=== PATIENT | male | born 1945 | race Two or more races ===

== ENCOUNTER 2021-10-17 19:08 | Inpatient (IN) | payer MEDICARE, OTHER ==
[~2021-10-17] VITALS: Ht 152.4 cm; Wt 67.1 kg
--- NOTE | 2021-10-17 19:15 | NUR ---
PATIENT WAS BIBRA 39 FROM HOME C/O WITNESSED SYNCOPAL EPISODE AT 1815. PT AAO X 4, YORUBA SPEAKING, BREATHING EVEN AND UNLABORED. SEEN AND EXAMINED BY DR BALDWIN. PT ATTACHED TO MONITOR AND PULSE OX. WILL CONTINUE MONITOR AND CARRY OUT MD ORDERS.
[2021-10-17] MEDS ORDERED: IV NS 0.9% 500 ML BAG IV ONE (19:30)
--- NOTE | 2021-10-17 19:37 | NUR ---
BLOOD DRAWN AND SENT TO LAB
[2021-10-17 20:25] LABS: BASOPHILS # (AUTO) 0.1 K/uL (0.0-0.2); BASOPHILS % (AUTO) 0.8 % (0.0-2.0); EOSINOPHILS % (AUTO) 0.3 % (0.0-6.0); HEMATOCRIT 41 % (39-51); HEMOGLOBIN 13.7 g/dL (13.5-17.5); LYMPHOCYTES # (AUTO) 0.4 K/uL (0.8-4.8); LYMPHOCYTES % (AUTO) 3.2 % (20.0-44.0); MEAN CORPUSCULAR HGB CONC 33 g/dl (31.0-36.0); MEAN CORPUSCULAR VOLUME 100 fL (80-96); MONOCYTES # (AUTO) 1.8 K/uL (0.1-1.30); MONOCYTES % (AUTO) 15.8 % (2.0-12.0); NEUTROPHILS % (AUTO) 79.9 % (43.0-81.0); PLATELET COUNT (AUTO) 155 K/uL (150-450); WHITE BLOOD COUNT (AUTO) 11.2 K/uL (4.3-11.0)
[2021-10-17 20:46] LABS: CALCIUM, SERUM 8.2 mg/dL (8.5-10.1); CARBON DIOXIDE 23 mmol/L (21-32); CHLORIDE 94 mmol/L (98-107); CREATININE 1.9 mg/dL (0.6-1.3); GLUCOSE 223 mg/dL (74-106); POTASSIUM 4.1 mmol/L (3.5-5.1); SODIUM SERUM 130 mmol/L (136-145); UREA NITROGEN, BLOOD 25 mg/dL (7-18)
[2021-10-17 20:51] LABS: ALANINE AMINOTRANSFERASE 72 U/L (12-78); ALBUMIN 2.3 g/dL (3.4-5.0); ALKALINE PHOSPHATASE 393 U/L (46-116); ASPARTATE AMINOTRANSFERASE 189 U/L (15-37); BILIRUBIN,DIRECT 2.5 mg/dL (0.0-0.2); BILIRUBIN,TOTAL 3.5 mg/dL (0.2-1.0); TOTAL PROTEIN, SERUM 6.2 g/dL (6.4-8.2)
--- NOTE | 2021-10-17 20:57 | NUR ---
MOVE SHEET SUBMITTED.
--- NOTE | 2021-10-17 21:02 | NUR ---
COVID SWAB COLLECTED AND SENT TO LAB
[2021-10-17 21:29] LABS: BAND % (MANUAL) 2 % (0.0-5.0); LYMPHOCYTES % (MANUAL) 8 % (16-48); MONOCYTES % (MANUAL) 13 % (0-11.0); NEUTROPHILS % (MANUAL) 77 (42-76)
[2021-10-18] MEDS ORDERED: ZOLPIDEM TARTRATE 5 MG TABLET PO PRN
[2021-10-18] MEDS ORDERED: MORPHINE SULFATE INJ 2 MG/ML DISP.SYRIN IV PRN
[2021-10-18] MEDS ORDERED: ACETAMINOPHEN 325 MG TABLET PO PRN
[2021-10-18] MEDS ORDERED: ONDANSETRON HCL/PF 4 MG/2 ML VIAL IVP PRN
[2021-10-18] MEDS ORDERED: Z GUARD REMEDY 4 OZ OINT TP PRN
[2021-10-18] MEDS ORDERED: MAG HYDROX/AL HYDROX/SIMETH 30 ML UDC PO PRN
[2021-10-18] MEDS ORDERED: HYDROCODONE/APAP 5/325MG TABLET PO PRN
[2021-10-18] MEDS ORDERED: MAGNESIUM HYDROXIDE 30 ML UDC PO PRN
[2021-10-18 05:27] LABS: BASOPHILS % (AUTO) 0.2 % (0.0-2.0); HEMATOCRIT 40 % (39-51); HEMOGLOBIN 13.3 g/dL (13.5-17.5); LYMPHOCYTES # (AUTO) 0.6 K/uL (0.8-4.8); LYMPHOCYTES % (AUTO) 4.8 % (20.0-44.0); MEAN CORPUSCULAR HGB CONC 34 g/dl (31.0-36.0); MEAN CORPUSCULAR VOLUME 100 fL (80-96); MONOCYTES # (AUTO) 1.8 K/uL (0.1-1.30); MONOCYTES % (AUTO) 14.7 % (2.0-12.0); NEUTROPHILS # (AUTO) 9.8 K/uL (1.8-8.9); NEUTROPHILS % (AUTO) 80.3 % (43.0-81.0); PLATELET COUNT (AUTO) 134 K/uL (150-450); RED BLOOD CELL COUNT(AUTO) 3.96 MIL/uL (4.5-6.0); WHITE BLOOD COUNT (AUTO) 12.2 K/uL (4.3-11.0)
[2021-10-18] MEDS ORDERED: MAGNESIUM HYDROXIDE 30 ML UDC ONE (05:41)
[2021-10-18 05:55] LABS: ALANINE AMINOTRANSFERASE 68 U/L (12-78); ALBUMIN 2.1 g/dL (3.4-5.0); ALKALINE PHOSPHATASE 340 U/L (46-116); ASPARTATE AMINOTRANSFERASE 185 U/L (15-37); BILIRUBIN,DIRECT 2.4 mg/dL (0.0-0.2); BILIRUBIN,TOTAL 3.4 mg/dL (0.2-1.0); CALCIUM, SERUM 8.1 mg/dL (8.5-10.1); CARBON DIOXIDE 27 mmol/L (21-32); CHLORIDE 98 mmol/L (98-107); GLUCOSE 127 mg/dL (74-106); MAGNESIUM 2.4 mg/dL (1.8-2.4); PHOSPHORUS 3.9 mg/dL (2.5-4.9); POTASSIUM 4.5 mmol/L (3.5-5.1); SODIUM SERUM 134 mmol/L (136-145); TOTAL PROTEIN, SERUM 5.9 g/dL (6.4-8.2); UREA NITROGEN, BLOOD 28 mg/dL (7-18)
[2021-10-18] MEDS ORDERED: PANTOPRAZOLE 40 MG TABLET.DR PO ONE (07:25)
[2021-10-18] MEDS: PANTOPRAZOLE 40 MG TABLET.DR PO SCH (07:30)
[2021-10-18 08:14] LABS: THYROID STIMULATING HORMONE 0.198 uIU/mL (0.358-3.74)
--- NOTE | 2021-10-18 08:35 | NUR ---
ULTRASOUND AT BEDSIDE
[2021-10-18] MEDS ORDERED: FOLI0.4T6 PO (08:38)
[2021-10-18] MEDS ORDERED: METO25TA4 PO (08:38)
[2021-10-18] MEDS ORDERED: LOSA25TA27 PO (08:38)
[2021-10-18] MEDS ORDERED: ATOR10TA PO (08:38)
[2021-10-18] MEDS ORDERED: CHOL200059 PO (08:38)
[2021-10-18] MEDS ORDERED: APIX5TAB PO (08:38)
[2021-10-18] MEDS ORDERED: AMIO400T5 PO (08:38)
[2021-10-18] MEDS ORDERED: NITR0.4T48 SL (08:38)
[2021-10-18] MEDS ORDERED: METF-440 PO (08:38)
[2021-10-18] MEDS ORDERED: METH2.5T14 PO (08:38)
[2021-10-18] MEDS ORDERED: FURO20TA4 PO ×2 (08:38→08:47)
[2021-10-18] MEDS ORDERED: CLOP75TA15 PO (08:38)
[2021-10-18] MEDS ORDERED: PRED2.5T PO (08:45)
--- NOTE | 2021-10-18 08:47 | NUR ---
SPOKE TO DAUGHTER JOELLEN AND SON AND STATED IF ANY MEDICAL RECORDS ARE NEEDED THAT HE FREQUENTLY GOES TO [facility].
--- NOTE | 2021-10-18 08:49 | NUR ---
PT'S PRIMARY PROVIDER IS DR VALENZUELA
[2021-10-18] MEDS ORDERED: ASPIRIN EC 81 MG TABLET.DR PO ONE (08:51)
[2021-10-18] MEDS ORDERED: HEPARIN SODIUM, PORCINE 5000 UNITS/1 ML VIAL ONE (08:51)
[2021-10-18] MEDS ORDERED: ONDANSETRON HCL/PF 4 MG/2 ML VIAL ONE ×2 (08:51→17:44)
[2021-10-18] MEDS ORDERED: Medication Not On Formulary EA (Prednisone 2.5 MG) PO SCH (09:00)
[2021-10-18] MEDS: METOPROLOL SUCCINATE 25 MG TAB.SR.24H PO SCH (09:00)
[2021-10-18] MEDS ORDERED: NITROGLYCERIN 0.4 MG/TAB BOTTLE SL PRN (09:00)
[2021-10-18] MEDS: ASPIRIN EC 81 MG TABLET.DR PO SCH (09:16)
[2021-10-18] MEDS: HEPARIN SODIUM, PORCINE 5000 UNITS/1 ML VIAL SQ SCH ×2 (09:17→21:25)
[2021-10-18] MEDS ORDERED: CHOLECALCIFEROL 1,000 UNIT TABLET (VIT D3) ONE (09:28)
[2021-10-18] MEDS ORDERED: FOLIC ACID 1 MG TABLET ONE (09:29)
[2021-10-18] MEDS ORDERED: CLOPIDOGREL BISULFATE 75 MG TABLET ONE (09:29)
[2021-10-18] MEDS ORDERED: METOPROLOL SUCCINATE 25 MG TAB.SR.24H ONE (09:29)
[2021-10-18] MEDS ORDERED: predniSONE 10 MG TABLET PO SCH (09:30)
[2021-10-18] MEDS ORDERED: predniSONE 1 MG TABLET PO SCH (09:30)
[2021-10-18] MEDS: FOLIC ACID 1 MG TABLET PO SCH (09:31)
[2021-10-18] MEDS: CHOLECALCIFEROL 1,000 UNIT TABLET (VIT D3) PO SCH (09:31)
[2021-10-18] MEDS: CLOPIDOGREL BISULFATE 75 MG TABLET PO SCH (09:31)
--- NOTE | 2021-10-18 09:47 | NUR ---
FOOD TRAY PROVIDED
[2021-10-18] MEDS ORDERED: METHOTREXATE SODIUM (2.5MG) 2.5 MG TABLET PO SCH (09:50)
[2021-10-18] MEDS: METHOTREXATE SODIUM (2.5MG) 2.5 MG TABLET PO SCH (10:14)
--- NOTE | 2021-10-18 11:02 | NUR ---
PT RESTING COMFORTABLY, VITALS ARE WITHIN PT'S BASELINE, WILL CONTINUE TO MONITOR.
[2021-10-18] MEDS: CEFTRIAXONE 1 G in IV D5W 50 ML IV SCH (13:41)
--- NOTE | 2021-10-18 15:20 | NUR ---
COLTON SCHRADER AT BEDSIDE
[2021-10-18 17:28] LABS: BILIRUBIN,URINE SMALL (NEGATIVE); COLOR,URINE YELLOW (YELLOW); LEUKOCYTE ESTERASE ,URINE NEGATIVE (NEGATIVE); NITRITE, URINE NEGATIVE (NEGATIVE); PROTEIN,URINE TRACE mg/dl (NEGATIVE); UGLUCOSE NEGATIVE (NEGATIVE)
[2021-10-18 18:09] LABS: BACTERIA,URINE None seen /HPF (None Seen); COARSE GRANULAR CASTS,URINE Many /LPF (None Seen); MUCUS,URINE Many /LPF (None Seen); RBC,URINE 0-2 /HPF (0-2); SQUAMOUS EPITHELIAL CELL,UR 0-2 /HPF (None Seen); URINE AMORPHOUS URATE Few /HPF (None Seen); WBC,URINE 0-2 /HPF (0-3)
[2021-10-18 18:10] LABS: HYALINE CASTS, URINE Many /LPF (None Seen)
--- NOTE | 2021-10-18 18:35 | NUR ---
FOOD TRAY PROVIDED
--- NOTE | 2021-10-18 18:49 | NUR ---
PT ATE 1/2 OF HIS DINNER
--- NOTE | 2021-10-18 19:01 | NUR ---
PT RESTING COMFORTABLY, EASY TO AROUSE.
--- NOTE | 2021-10-18 19:15 | NUR ---
GOT BED 323-1 AFTER CHANGE OF SHIFT.
--- NOTE | 2021-10-18 20:09 | NUR ---
REPORT GIVEN TO MARVEL JARA
[2021-10-18 20:45] VITALS: BP 114/60
--- NOTE | 2021-10-18 20:53 | NUR ---
TRANSFERRED TO 323 UNDER ACLS
[2021-10-18 21:45] VITALS: BP 114/60
--- NOTE | 2021-10-18 22:00 | NUR ---
GLOBAL CLIMATE CHANGE ANALYSTMOLDING LINE ASSISTANT NOTES RECEIVED NEW ADMIT FROM ER,THIS 76Y.O. MALE,SPEAK BHUTANESE WITH LITTLE CAYMAN ISLANDER,ALERT,ORIENTED X4,WITH CHIEF COMPLAINTS OF CP AND SYNCOPAL EPISODE AT HOME.DENIES CHEST PAIN UPON ARRIVAL ON THE UNIT,WITH KNOWN WEAKNESS ON LOWER EXTREMITIES,CLAIMED HE AMBULATE WITH WALKER AT HOME,ABLE TO VERBALIZED NEEDS,SPEECH CLEAR,,O2 SAT 99% ON ROOM AIR,NO SKIN ISSUES.VACCINATED TWICE WITH MODERNA COVID VACCINE AND UPDATED WITH FLU SHOT WELL.VITALS SIGNS WITH IN NORMAL LIMITS.NO SKIN ISSUES.CALL ANGELA PELAYO,NEEDS ANTICIPATED.
--- NOTE | 2021-10-18 22:30 | NUR ---
MEDICAL RECORD CODER NOTES AV PACING 70 ON TELE MONITOR,WITH PACEMAKER LEFT UPPER CHEST WALL.
[2021-10-19] VITALS: BP 100/52
[2021-10-19 04:00] VITALS: BP_SYST 103; BP_SYST 106; BP_SYST 97; BP_DIAS 56; BP_DIAS 64; BP_DIAS 66
--- NOTE | 2021-10-19 06:52 | NUR ---
TRESTLEMAN NOTES ORTHOSTATIC VITAL SIGNS DONE AND RECORDED.NO CHEST PAIN,ASLEEP SINCE MIDNIGHT,AV PACING ON TELE MONITOR.IN NO ACUTE DISTRESS.CALL LIGHT IN REACH,NEEDS ATTENDED.
[2021-10-19 07:07] LABS: BASOPHILS % (AUTO) 0.3 % (0.0-2.0); EOSINOPHILS % (AUTO) 0.2 % (0.0-6.0); HEMATOCRIT 39 % (39-51); HEMOGLOBIN 13.2 g/dL (13.5-17.5); LYMPHOCYTES # (AUTO) 0.8 K/uL (0.8-4.8); LYMPHOCYTES % (AUTO) 6.9 % (20.0-44.0); MEAN CORPUSCULAR HGB CONC 34 g/dl (31.0-36.0); MEAN CORPUSCULAR VOLUME 99 fL (80-96); MONOCYTES # (AUTO) 1.1 K/uL (0.1-1.30); MONOCYTES % (AUTO) 9.1 % (2.0-12.0); NEUTROPHILS # (AUTO) 9.8 K/uL (1.8-8.9); NEUTROPHILS % (AUTO) 83.5 % (43.0-81.0); PLATELET COUNT (AUTO) 140 K/uL (150-450); RED BLOOD CELL COUNT(AUTO) 3.91 MIL/uL (4.5-6.0); WHITE BLOOD COUNT (AUTO) 11.7 K/uL (4.3-11.0)
--- NOTE | 2021-10-19 07:20 | NUR ---
AUTOMOBILE SALESMAN OPENING NOTES RECEIVED PATIENT ON BED, AWAKE, A/O X3, VERBALLY RESPONSIVE. NO SIGNS OF ACUTE DISTRESS NOTED. ON ROOM AIR, TOLERATING WELL, NO SOB NOTED. NO C/O PAIN OR DISCOMFORT AT THIS TIME. IV ACCESS ON LAC #20G INTACT AND PATENT, SL. ON TELE MONITOR PACING @70'S. SAFETY MEASURES MAINTAINED, BED LOCKED AND IN LOWEST POSITION, BED ALARM ON, SR UP X2, CALL LIGHT PLACED WITHIN EASY REACH. WILL CONTINUE TO MONITOR.
[2021-10-19 07:29] LABS: CALCIUM, SERUM 7.6 mg/dL (8.5-10.1); CARBON DIOXIDE 25 mmol/L (21-32); CHLORIDE 97 mmol/L (98-107); CREATININE 1.8 mg/dL (0.6-1.3); GLUCOSE 86 mg/dL (74-106); MAGNESIUM 2.4 mg/dL (1.8-2.4); PHOSPHORUS 5.3 mg/dL (2.5-4.9); POTASSIUM 4.8 mmol/L (3.5-5.1); SODIUM SERUM 131 mmol/L (136-145); UREA NITROGEN, BLOOD 34 mg/dL (7-18)
[2021-10-19] MEDS: CLOPIDOGREL BISULFATE 75 MG TABLET PO SCH (08:06)
[2021-10-19] MEDS: CHOLECALCIFEROL 1,000 UNIT TABLET (VIT D3) PO SCH (08:06)
[2021-10-19] MEDS: PANTOPRAZOLE 40 MG TABLET.DR PO SCH (08:06)
[2021-10-19] MEDS: FOLIC ACID 1 MG TABLET PO SCH (08:07)
[2021-10-19] MEDS: ASPIRIN EC 81 MG TABLET.DR PO SCH (08:07)
[2021-10-19] MEDS: HEPARIN SODIUM, PORCINE 5000 UNITS/1 ML VIAL SQ SCH ×2 (08:13→21:13)
[2021-10-19] MEDS: METOPROLOL SUCCINATE 25 MG TAB.SR.24H PO SCH (08:15)
[2021-10-19 08:21] VITALS: BP 98/59
[2021-10-19] MEDS: predniSONE 5 MG TABLET PO SCH (08:28)
[2021-10-19 12:06] VITALS: BP 107/62
[2021-10-19] MEDS: CEFTRIAXONE 1 G in IV D5W 50 ML IV SCH (12:47)
[2021-10-19] MEDS: AMIODARONE HCL 200 MG TABLET PO SCH ×2 (15:00→17:00)
[2021-10-19] MEDS: SENNOSIDES 8.6 MG TABLET PO SCH (16:14)
[2021-10-19 16:36] VITALS: BP 90/55
--- NOTE | 2021-10-19 18:51 | NUR ---
HOSPITALITY ASSOCIATE CLOSING NOTES PATIENT ASLEEP IN BED,NO SIGNS OF ACUTE DISTRESS NOTED. REMAINS ON ROOM AIR, TOLERATING WELL, NO SOB NOTED. NO C/O PAIN OR DISCOMFORT AT THIS TIME. ALL DUE MEDS GIVEN. IV ACCESS ON LAC #20G INTACT AND PATENT, SL. ON TELE MONITOR AV PACING @70'S. SAFETY MEASURES MAINTAINED, BED LOCKED AND IN LOWEST POSITION, BED ALARM ON, SR UP X2, CALL LIGHT PLACED WITHIN EASY REACH. WILL ENDORSE TO NEXT SHIFT.
[2021-10-19 20:00] VITALS: BP 105/64
[2021-10-20] VITALS: BP 110/57
--- NOTE | 2021-10-20 06:28 | NUR ---
RN CLOSING NOTES Patient has been stable overnight. No complaints. Denies any Chest Pain. Has been AV pacing in 70s on monitor. Clear wesly urine -good output. No coughing or SOB. VS WNL.
[2021-10-20 06:47] VITALS: BP 104/61
[2021-10-20 07:05] LABS: BASOPHILS % (AUTO) 0.4 % (0.0-2.0); EOSINOPHILS % (AUTO) 0.5 % (0.0-6.0); HEMATOCRIT 36 % (39-51); HEMOGLOBIN 12.2 g/dL (13.5-17.5); LYMPHOCYTES # (AUTO) 0.9 K/uL (0.8-4.8); LYMPHOCYTES % (AUTO) 9.3 % (20.0-44.0); MEAN CORPUSCULAR HGB CONC 34 g/dl (31.0-36.0); MEAN CORPUSCULAR VOLUME 100 fL (80-96); MONOCYTES # (AUTO) 0.3 K/uL (0.1-1.30); MONOCYTES % (AUTO) 3.6 % (2.0-12.0); NEUTROPHILS # (AUTO) 8.2 K/uL (1.8-8.9); NEUTROPHILS % (AUTO) 86.2 % (43.0-81.0); PLATELET COUNT (AUTO) 122 K/uL (150-450); RED BLOOD CELL COUNT(AUTO) 3.61 MIL/uL (4.5-6.0); WHITE BLOOD COUNT (AUTO) 9.5 K/uL (4.3-11.0)
[2021-10-20 07:10] LABS: CALCIUM, SERUM 7.4 mg/dL (8.5-10.1); CARBON DIOXIDE 27 mmol/L (21-32); CHLORIDE 96 mmol/L (98-107); CREATININE 1.9 mg/dL (0.6-1.3); GLUCOSE 88 mg/dL (74-106); MAGNESIUM 2.3 mg/dL (1.8-2.4); PHOSPHORUS 4.5 mg/dL (2.5-4.9); POTASSIUM 4.1 mmol/L (3.5-5.1); SODIUM SERUM 131 mmol/L (136-145); UREA NITROGEN, BLOOD 40 mg/dL (7-18)
--- NOTE | 2021-10-20 07:14 | NUR ---
MANAGER SALES OPENING NOTES RECEIVED PATIENT IN BED, AWAKE, A/O X3, VERBALLY RESPONSIVE. NO SIGNS OF ACUTE DISTRESS NOTED. ON ROOM AIR, TOLERATING WELL, NO SOB NOTED. NO C/O PAIN OR DISCOMFORT AT THIS TIME. IV ACCESS ON LAC #20G INTACT AND PATENT, SL. ON TELE MONITOR PACING @70'S. THRILL AND BRUIT PRESENT ON R AC FISTULA. SAFETY MEASURES MAINTAINED, BED LOCKED AND IN LOWEST POSITION, BED ALARM ON, SR UP X2, CALL LIGHT PLACED WITHIN EASY REACH. WILL CONTINUE TO MONITOR. Addendum: 10/20/21 at 1500 by SELVIN HAIDER RN CORRECTION: PT HAS NO RAC FISTULA.
[2021-10-20 08:00] VITALS: BP 100/50
[2021-10-20 08:32] LABS: ALBUMIN 1.8 g/dL (3.4-5.0); BILIRUBIN,DIRECT 1.9 mg/dL (0.0-0.2); BILIRUBIN,TOTAL 2.5 mg/dL (0.2-1.0); TOTAL PROTEIN, SERUM 5.2 g/dL (6.4-8.2)
[2021-10-20] MEDS: SOTALOL HCL 80 MG TABLET PO SCH ×2 (09:00→21:16)
[2021-10-20] MEDS: FOLIC ACID 1 MG TABLET PO SCH (09:20)
[2021-10-20] MEDS: ASPIRIN EC 81 MG TABLET.DR PO SCH (09:20)
[2021-10-20] MEDS: predniSONE 5 MG TABLET PO SCH (09:20)
[2021-10-20] MEDS: CLOPIDOGREL BISULFATE 75 MG TABLET PO SCH (09:20)
[2021-10-20] MEDS: PANTOPRAZOLE 40 MG TABLET.DR PO SCH (09:20)
[2021-10-20] MEDS: CHOLECALCIFEROL 1,000 UNIT TABLET (VIT D3) PO SCH (09:21)
[2021-10-20] MEDS: HEPARIN SODIUM, PORCINE 5000 UNITS/1 ML VIAL SQ SCH ×2 (09:21→21:17)
[2021-10-20 12:00] VITALS: BP 105/54
[2021-10-20] MEDS: CEFTRIAXONE 1 G in IV D5W 50 ML IV SCH (14:11)
[2021-10-20 16:00] VITALS: BP 96/56
[2021-10-20] MEDS: SENNOSIDES 8.6 MG TABLET PO SCH (16:31)
--- NOTE | 2021-10-20 18:34 | NUR ---
EDUCATION SPECIALIST CLOSING NOTES PT IN BED AWAKE WATCHING TV AT THIS TIME. A/O X4, ABLE TO MAKE NEEDS KNOWN. ON ROOM AIR, TOLERATING WELL, NO SOB NOTED DURING SHIFT. IV ACCESS ON LAC #20G INTACT AND PATENT, SL. TELE-MONITOR SHOWS A-PACING TO AV-PACING DURING SHIFT, HR 70, NO C/O CARDIAC DISTRESS VOICED DURING THE DAY. ALL NEEDS AND CARE ATTENDED WELL. SAFETY MEASURES IN PLACED: BED IN LOWEST LOCKED POSITION WITH SIDE-RAILS UP X2. CALL LIGHT AND BEDSIDE TABLE W/IN EASY REACH OF PT. WILL ENDORSE JAQUELINE TO COMMERCIAL ESCROW OFFICER NURSE.
[2021-10-20 20:00] VITALS: BP 100/54
[2021-10-21] VITALS: BP_SYST 104; BP_SYST 84; BP_DIAS 57; BP_DIAS 63
[2021-10-21 04:00] VITALS: BP 85/56
--- NOTE | 2021-10-21 04:15 | NUR ---
Patient's SBP at baseline is 90s to low 100s, before bed was 100/64, after sotalol administration B/P went down to mid 80s. Patient showing no symptoms monitoring closely.
--- NOTE | 2021-10-21 06:42 | NUR ---
Patient sleeping intermittently throughout night A&Ox4, no signs of distress. Patient reports feeling "good." Still asymptomatic for low B/P. AV pacing AT 100% ON MONITOR 70bpm. hAD 1 BM soft brown and clear wesly urine.
[2021-10-21 07:27] LABS: BASOPHILS % (AUTO) 0.3 % (0.0-2.0); EOSINOPHILS % (AUTO) 0.8 % (0.0-6.0); HEMATOCRIT 38 % (39-51); HEMOGLOBIN 12.6 g/dL (13.5-17.5); LYMPHOCYTES # (AUTO) 0.8 K/uL (0.8-4.8); LYMPHOCYTES % (AUTO) 7.8 % (20.0-44.0); MEAN CORPUSCULAR HGB CONC 34 g/dl (31.0-36.0); MEAN CORPUSCULAR VOLUME 100 fL (80-96); MONOCYTES # (AUTO) 0.2 K/uL (0.1-1.30); MONOCYTES % (AUTO) 2.2 % (2.0-12.0); NEUTROPHILS # (AUTO) 9.3 K/uL (1.8-8.9); NEUTROPHILS % (AUTO) 88.9 % (43.0-81.0); PLATELET COUNT (AUTO) 117 K/uL (150-450); RED BLOOD CELL COUNT(AUTO) 3.76 MIL/uL (4.5-6.0); WHITE BLOOD COUNT (AUTO) 10.5 K/uL (4.3-11.0)
--- NOTE | 2021-10-21 07:33 | NUR ---
ZMT OPERATOR OPENING NOTES PT RECEIVED AWAKE IN BED IN NO ACUTE SIGNS OF DISTRESS. A/O X4, ABLE TO MAKE NEEDS KNOWN, DENIES PAIN OR ANY DISCOMFORTS AT THIS TIME. ON ROOM AIR, TOLERATING WELL, BREATHING EVEN AND UNLABORED. IV ACCESS ON LAC #20G INTACT AND PATENT, SL. TELE-MONITOR SHOWS A-PACING TO AV-PACING, HR 70, NO C/O CARDIAC DISTRESS VOICED. SAFETY MEASURES IN PLACED: BED IN LOWEST LOCKED POSITION WITH SIDE-RAILS UP X2. CALL LIGHT AND BEDSIDE TABLE W/IN EASY REACH OF PT. WILL CONTINUE TO MONITOR PT.
[2021-10-21 07:43] LABS: ALANINE AMINOTRANSFERASE 58 U/L (12-78); ALBUMIN 1.8 g/dL (3.4-5.0); ALKALINE PHOSPHATASE 294 U/L (46-116); ASPARTATE AMINOTRANSFERASE 175 U/L (15-37); BILIRUBIN,TOTAL 2.8 mg/dL (0.2-1.0); CALCIUM, SERUM 7.7 mg/dL (8.5-10.1); CARBON DIOXIDE 26 mmol/L (21-32); CHLORIDE 96 mmol/L (98-107); CREATININE 1.6 mg/dL (0.6-1.3); GLUCOSE 78 mg/dL (74-106); POTASSIUM 4.5 mmol/L (3.5-5.1); SODIUM SERUM 129 mmol/L (136-145); TOTAL PROTEIN, SERUM 5.1 g/dL (6.4-8.2); UREA NITROGEN, BLOOD 37 mg/dL (7-18)
[2021-10-21 08:00] VITALS: BP 81/48
[2021-10-21] MEDS: PANTOPRAZOLE 40 MG TABLET.DR PO SCH (08:11)
[2021-10-21] MEDS ORDERED: MIDODRINE HCL (5MG) 5 MG TABLET PO PRN (09:00)
[2021-10-21] MEDS: SOTALOL HCL 80 MG TABLET PO SCH ×2 (09:00→20:35)
[2021-10-21] MEDS: FOLIC ACID 1 MG TABLET PO SCH (09:06)
[2021-10-21] MEDS: CLOPIDOGREL BISULFATE 75 MG TABLET PO SCH (09:06)
[2021-10-21] MEDS: predniSONE 5 MG TABLET PO SCH (09:07)
[2021-10-21] MEDS: CHOLECALCIFEROL 1,000 UNIT TABLET (VIT D3) PO SCH (09:07)
[2021-10-21] MEDS: ASPIRIN EC 81 MG TABLET.DR PO SCH (09:07)
[2021-10-21] MEDS: HEPARIN SODIUM, PORCINE 5000 UNITS/1 ML VIAL SQ SCH ×2 (09:08→20:29)
[2021-10-21] MEDS: ALBUMIN 25% 25 GM in PREMIX 1 EA IV SCH ×2 (10:39→20:25)
[2021-10-21 12:00] VITALS: BP 84/55
[2021-10-21] MEDS: CEFTRIAXONE 1 G in IV D5W 50 ML IV SCH (13:36)
[2021-10-21 16:00] VITALS: BP 85/56
[2021-10-21] MEDS: SENNOSIDES 8.6 MG TABLET PO SCH (16:26)
--- NOTE | 2021-10-21 18:55 | NUR ---
AGILE COACH CLOSING NOTES PT IN BED WATCHING TV AT THIS TIME. A/O X4, THAI SPEAKING AND UNDERSTANDS BASIC UKRAINIAN. ON ROOM AIR, TOLERATING WELL, NO SOB NOTED DURING SHIFT. IV SL ON LAC #20G INTACT AND PATENT. TELE-MONITOR SHOWS AV-PACING AT THIS TIME, HR 70, NO C/O CARDIAC DISTRESS VOICED DURING THE DAY. ALL NEEDS AND CARE ATTENDED WELL. SAFETY MEASURES IN PLACED: BED IN LOWEST LOCKED POSITION WITH SIDE-RAILS UP X2. CALL LIGHT AND BEDSIDE TABLE W/IN EASY REACH OF PT. WILL ENDORSE JAQUELINE TO PEACE OFFICER NURSE.
--- NOTE | 2021-10-21 19:15 | NUR ---
HAMMERER TAB OPENING NOTES RECEIVED PATIENT LAYING AWAKE IN BED. A/O X 4. PATIENT WITH REGULAR AND UNLABORED BREATHING ON ROOM AIR TOLERATED WELL. NO SIGNS AND SYMPTOMS OF DISTRESS NOTED AT THIS TIME. NO COMPLAINS OF PAIN OR DISCOMFORT AT THIS TIME. PATIENT ON TELE MONITOR READING AV PACING @ 70 BPM. IV ACCESS LAC G #20 SL. IV ACCESS PATENT AND INTACT. SAFETY PRECAUTIONS ENFORCED WITH BED LOCKED AND AT LOWEST POSITION. SIDERAILS UP X2. CALL LIGHT WITHIN REACH AT ALL TIMES. WILL CONTINUE TO MONITOR PATIENT.
[2021-10-21 20:00] VITALS: BP 92/58
--- NOTE | 2021-10-21 21:00 | NUR ---
ASSIGNMENT DESK ASSISTANT NOTES DID NOT ADMINISTER SOTALOL DUE TO PATIENT BP 92/58. WILL CONTINUE TO MONITOR PATIENT.
[2021-10-22] VITALS: BP 93/52
[2021-10-22 04:00] VITALS: BP 94/62
--- NOTE | 2021-10-22 06:52 | NUR ---
FOOD SERVICE ORDER CLERK CLOSING NOTES PATIENT STILL LAYING AWAKE IN BED. A/O X 4. PATIENT WITH REGULAR AND UNLABORED BREATHING ON ROOM AIR TOLERATED WELL. NO SIGNS AND SYMPTOMS OF DISTRESS NOTED AT THIS TIME. NO COMPLAINS OF PAIN OR DISCOMFORT AT THIS TIME. PATIENT ON TELE MONITOR READING AV PACING @ 70 BPM. IV ACCESS LAC G #20 SL. IV ACCESS PATENT AND INTACT. SAFETY PRECAUTIONS ENFORCED WITH BED LOCKED AND AT LOWEST POSITION. SIDERAILS UP X2. CALL LIGHT WITHIN REACH AT ALL TIMES. WILL ENDORSE CONTINUITY OF CARE TO DAY SHIFT NURSE.
[2021-10-22 07:37] LABS: BASOPHILS % (AUTO) 0.2 % (0.0-2.0); EOSINOPHILS % (AUTO) 1.7 % (0.0-6.0); HEMATOCRIT 37 % (39-51); HEMOGLOBIN 12.4 g/dL (13.5-17.5); LYMPHOCYTES # (AUTO) 0.7 K/uL (0.8-4.8); LYMPHOCYTES % (AUTO) 8.4 % (20.0-44.0); MEAN CORPUSCULAR HGB CONC 34 g/dl (31.0-36.0); MEAN CORPUSCULAR VOLUME 100 fL (80-96); MONOCYTES # (AUTO) 0.4 K/uL (0.1-1.30); MONOCYTES % (AUTO) 4.8 % (2.0-12.0); NEUTROPHILS # (AUTO) 7.5 K/uL (1.8-8.9); NEUTROPHILS % (AUTO) 84.9 % (43.0-81.0); PLATELET COUNT (AUTO) 97 K/uL (150-450); RED BLOOD CELL COUNT(AUTO) 3.67 MIL/uL (4.5-6.0); WHITE BLOOD COUNT (AUTO) 8.8 K/uL (4.3-11.0)
--- NOTE | 2021-10-22 07:47 | NUR ---
GRAIN CLEANER AND TRANSFER OPERATOR OPENING NOTES RECEIVED PATIENT LAYING AWAKE IN BED. A/O X 4. PATIENT WITH REGULAR AND UNLABORED BREATHING ON ROOM AIR TOLERATING WELL. NO SIGNS AND SYMPTOMS OF DISTRESS NOTED AT THIS TIME. NO COMPLAINTS OF PAIN OR DISCOMFORT AT THIS TIME. IV ACCESS L AC #20g SL. IV ACCESS IS PATENT AND INTACT. SAFETY PRECAUTIONS IN PLACE: BED IS LOCKED AND IN LOWEST POSITION. SIDE RAILS UP X2. CALL LIGHT AND BEDSIDE TABLE ARE WITHIN REACH. WILL CONTINUE TO MONITOR THROUGHOUT THE SHIFT.
[2021-10-22 08:10] LABS: ALANINE AMINOTRANSFERASE 52 U/L (12-78); ALBUMIN 2.3 g/dL (3.4-5.0); ALKALINE PHOSPHATASE 288 U/L (46-116); ASPARTATE AMINOTRANSFERASE 157 U/L (15-37); BILIRUBIN,TOTAL 3.2 mg/dL (0.2-1.0); CALCIUM, SERUM 7.3 mg/dL (8.5-10.1); CARBON DIOXIDE 25 mmol/L (21-32); CHLORIDE 95 mmol/L (98-107); CREATININE 1.5 mg/dL (0.6-1.3); GLUCOSE 80 mg/dL (74-106); POTASSIUM 3.7 mmol/L (3.5-5.1); SODIUM SERUM 127 mmol/L (136-145); TOTAL PROTEIN, SERUM 5.1 g/dL (6.4-8.2); UREA NITROGEN, BLOOD 37 mg/dL (7-18)
[2021-10-22] MEDS: FOLIC ACID 1 MG TABLET PO SCH (08:14)
[2021-10-22] MEDS: PANTOPRAZOLE 40 MG TABLET.DR PO SCH (08:15)
[2021-10-22] MEDS: CHOLECALCIFEROL 1,000 UNIT TABLET (VIT D3) PO SCH (08:15)
[2021-10-22] MEDS: predniSONE 5 MG TABLET PO SCH (08:15)
[2021-10-22] MEDS: ASPIRIN EC 81 MG TABLET.DR PO SCH (08:15)
[2021-10-22] MEDS: HEPARIN SODIUM, PORCINE 5000 UNITS/1 ML VIAL SQ SCH ×2 (08:35→21:12)
[2021-10-22] MEDS: SOTALOL HCL 80 MG TABLET PO SCH ×2 (08:36→21:13)
--- NOTE | 2021-10-22 08:36 | NUR ---
RN NOTES: BP MEDS SOTALOL BEING HELP Pt BP IS 82/50 AND HR IS 70. WILL CONTINUE TO MONITOR.
[2021-10-22] MEDS: CLOPIDOGREL BISULFATE 75 MG TABLET PO SCH (08:40)
[2021-10-22] MEDS ORDERED: IV NS 0.9% 500 ML IV ONE (09:00)
[2021-10-22] MEDS: MIDODRINE HCL (5MG) 5 MG TABLET PO SCH ×3 (09:55→17:42)
[2021-10-22] MEDS: ALBUMIN 25% 25 GM in PREMIX 1 EA IV SCH ×2 (09:56→21:13)
[2021-10-22 10:00] VITALS: BP 82/50
[2021-10-22 13:06] VITALS: BP 102/63
[2021-10-22] MEDS: CEFTRIAXONE 1 G in IV D5W 50 ML IV SCH (13:42)
[2021-10-22] MEDS ORDERED: IV NS 0.9% 1,000 ML IV ONE (16:30)
[2021-10-22] MEDS: SENNOSIDES 8.6 MG TABLET PO SCH (17:41)
[2021-10-22 17:49] LABS: BAND % (MANUAL) 2 % (0.0-5.0); LYMPHOCYTES % (MANUAL) 4 % (16-48); MONOCYTES % (MANUAL) 8 % (0-11.0); NEUTROPHILS % (MANUAL) 86 (42-76)
[2021-10-22 17:50] VITALS: BP 102/60
--- NOTE | 2021-10-22 18:42 | NUR ---
ENGINEER STEAM CLOSING NOTES Pt STILL LAYING AWAKE IN BED. A/O X 4. Pt IS A PAKISTANI SPEAKER. Pt WITH REGULAR AND UNLABORED BREATHING ON ROOM AIR TOLERATING WELL. NO SIGNS AND SYMPTOMS OF DISTRESS NOTED AT THIS TIME. NO COMPLAINTS OF PAIN OR DISCOMFORT AT THIS TIME. IV ACCESS L AC #20g SL. IV ACCESS PATENT AND INTACT. SAFETY PRECAUTIONS ENFORCED WITH BED LOCKED AND IN LOWEST POSITION. CUT OFF OPERATOR SCORER AILS UP X2. CALL LIGHT AND BED SIDE TABLE ARE WITHIN REACH AT ALL TIMES. WILL ENDORSE TO ONCOMING SHIFT.
[2021-10-22 20:00] VITALS: BP 101/59
[2021-10-23] VITALS: BP 97/65
[2021-10-23 04:00] VITALS: BP 98/76
--- NOTE | 2021-10-23 06:40 | NUR ---
CNC TECHNICIAN NOTES AWAKE & RESPONSIVE. NOT IN ANY DISTRESS. NO SOB NOTED. DENIES ANY PAIN OR DISCOMFORT AT THIS TIME. ON TELE AV PACING @ 70 WITH IV-HL PATENT & INTACT. AM CARE DONE. MONITORED ACCORDINGLY. CALL LIGHT WITHIN REACH. BED IN LOWEST POSITION. SR UP X 2 FOR SAFETY. WILL ENDORSE TO NEXT SHIFT.
[2021-10-23 07:02] LABS: BASOPHILS % (AUTO) 0.3 % (0.0-2.0); EOSINOPHILS % (AUTO) 1.9 % (0.0-6.0); HEMATOCRIT 35 % (39-51); HEMOGLOBIN 11.8 g/dL (13.5-17.5); LYMPHOCYTES % (AUTO) 10.6 % (20.0-44.0); MEAN CORPUSCULAR HGB CONC 34 g/dl (31.0-36.0); MEAN CORPUSCULAR VOLUME 99 fL (80-96); MONOCYTES # (AUTO) 0.6 K/uL (0.1-1.30); MONOCYTES % (AUTO) 6.6 % (2.0-12.0); NEUTROPHILS # (AUTO) 7.9 K/uL (1.8-8.9); NEUTROPHILS % (AUTO) 80.6 % (43.0-81.0); PLATELET COUNT (AUTO) 85 K/uL (150-450); RED BLOOD CELL COUNT(AUTO) 3.48 MIL/uL (4.5-6.0); WHITE BLOOD COUNT (AUTO) 9.8 K/uL (4.3-11.0)
[2021-10-23 07:12] LABS: CHOLESTEROL 60 mg/dL (<200); LDL 39 mg/dL (0-99); TRIGLYCERIDES 54 mg/dL (30-150)
[2021-10-23 07:31] LABS: ALANINE AMINOTRANSFERASE 42 U/L (12-78); ALBUMIN 2.5 g/dL (3.4-5.0); ALKALINE PHOSPHATASE 252 U/L (46-116); ASPARTATE AMINOTRANSFERASE 113 U/L (15-37); BILIRUBIN,TOTAL 3.2 mg/dL (0.2-1.0); CALCIUM, SERUM 7.2 mg/dL (8.5-10.1); CARBON DIOXIDE 26 mmol/L (21-32); CHLORIDE 98 mmol/L (98-107); CREATININE 1.4 mg/dL (0.6-1.3); GLUCOSE 89 mg/dL (74-106); POTASSIUM 3.7 mmol/L (3.5-5.1); SODIUM SERUM 129 mmol/L (136-145); TOTAL PROTEIN, SERUM 4.9 g/dL (6.4-8.2); UREA NITROGEN, BLOOD 34 mg/dL (7-18)
--- NOTE | 2021-10-23 07:37 | NUR ---
COMMERCIAL FINANCE ANALYST OPENING NOTES RECEIVED PATIENT LAYING AWAKE IN BED. A/O X 4. PATIENT WITH REGULAR AND UNLABORED BREATHING ON ROOM AIR TOLERATING WELL. NO SIGNS AND SYMPTOMS OF DISTRESS NOTED AT THIS TIME. NO COMPLAINTS OF PAIN OR DISCOMFORT AT THIS TIME. IV ACCESS L AC #20g SL. IV ACCESS IS PATENT AND INTACT. SAFETY PRECAUTIONS IN PLACE: BED IS LOCKED AND IN LOWEST POSITION. SIDE RAILS UP X2. CALL LIGHT AND BEDSIDE TABLE ARE WITHIN REACH. WILL CONTINUE TO MONITOR THROUGHOUT THE SHIFT.
[2021-10-23 08:01] LABS: HDL CHOLESTEROL < 10 mg/dL (40-60)
[2021-10-23] MEDS: CHOLECALCIFEROL 1,000 UNIT TABLET (VIT D3) PO SCH (08:52)
[2021-10-23] MEDS: MIDODRINE HCL (5MG) 5 MG TABLET PO SCH ×3 (08:53→17:39)
[2021-10-23] MEDS: FOLIC ACID 1 MG TABLET PO SCH (08:53)
[2021-10-23] MEDS: predniSONE 5 MG TABLET PO SCH (08:54)
[2021-10-23] MEDS: CLOPIDOGREL BISULFATE 75 MG TABLET PO SCH (08:54)
[2021-10-23] MEDS: ASPIRIN EC 81 MG TABLET.DR PO SCH (08:54)
[2021-10-23] MEDS: PANTOPRAZOLE 40 MG TABLET.DR PO SCH (08:56)
[2021-10-23] MEDS: HEPARIN SODIUM, PORCINE 5000 UNITS/1 ML VIAL SQ SCH ×2 (09:00→21:22)
[2021-10-23] MEDS: SOTALOL HCL 80 MG TABLET PO SCH ×2 (09:00→21:21)
--- NOTE | 2021-10-23 09:00 | NUR ---
RN NOTES HEPARIN NOT ADMIN Pt'S PLATELETS ARE 85. BETAPACE WITHHELD A Pt's BP IS 93/57 AND HR IS 66. WILL CONTINUE TO MONITOR.
[2021-10-23] MEDS: CEFTRIAXONE 1 G in IV D5W 50 ML IV SCH (13:59)
[2021-10-23] MEDS: SENNOSIDES 8.6 MG TABLET PO SCH (17:39)
--- NOTE | 2021-10-23 19:19 | NUR ---
MS RN CLOSING NOTES Pt STILL LAYING AWAKE IN BED. A/O X 4. Pt IS A CHINESE SPEAKER. Pt WITH REGULAR AND UNLABORED BREATHING ON ROOM AIR TOLERATING WELL. NO SIGNS AND SYMPTOMS OF DISTRESS NOTED AT THIS TIME. NO COMPLAINTS OF PAIN OR DISCOMFORT AT THIS TIME. IV ACCESS L AC #20g SL. IV ACCESS PATENT AND INTACT. SAFETY PRECAUTIONS ENFORCED WITH BED LOCKED AND IN LOWEST POSITION. IMAGERY ANALYST AILS UP X2. CALL LIGHT AND BED SIDE TABLE ARE WITHIN REACH AT ALL TIMES. WILL ENDORSE TO ONCOMING SHIFT.
[2021-10-23 20:00] VITALS: BP 101/62
[2021-10-23] MEDS ORDERED: IV NS 0.9% 1,000 ML IV ONE (23:00)
[2021-10-24 07:13] LABS: BASOPHILS % (AUTO) 0.2 % (0.0-2.0); EOSINOPHILS % (AUTO) 0.6 % (0.0-6.0); HEMATOCRIT 39 % (39-51); LYMPHOCYTES # (AUTO) 1.2 K/uL (0.8-4.8); LYMPHOCYTES % (AUTO) 7.7 % (20.0-44.0); MEAN CORPUSCULAR HGB CONC 34 g/dl (31.0-36.0); MEAN CORPUSCULAR VOLUME 99 fL (80-96); MONOCYTES # (AUTO) 1.1 K/uL (0.1-1.30); MONOCYTES % (AUTO) 7.3 % (2.0-12.0); NEUTROPHILS # (AUTO) 13.2 K/uL (1.8-8.9); NEUTROPHILS % (AUTO) 84.2 % (43.0-81.0); PLATELET COUNT (AUTO) 78 K/uL (150-450); RED BLOOD CELL COUNT(AUTO) 3.89 MIL/uL (4.5-6.0); WHITE BLOOD COUNT (AUTO) 15.7 K/uL (4.3-11.0)
--- NOTE | 2021-10-24 07:36 | NUR ---
MANAGER COUNCIL OPENING NOTES RECEIVED PATIENT RESTING SEMI-FOWLERS IN BED. EYES CLOSED, EASILY AWAKENS. A/O X 4. PATIENT WITH REGULAR AND UNLABORED BREATHING ON ROOM AIR TOLERATING WELL. NO SIGNS AND SYMPTOMS OF DISTRESS NOTED AT THIS TIME. NO COMPLAINTS OF PAIN OR DISCOMFORT AT THIS TIME. IV ACCESS L AC #20g SL WITH IV ACCESS IS PATENT AND INTACT WITH NS @ 100 Ml/HR. SAFETY PRECAUTIONS IN PLACE: BED IS LOCKED AND IN LOWEST POSITION. SIDE RAILS UP X2. CALL LIGHT AND BEDSIDE TABLE ARE WITHIN REACH. WILL CONTINUE TO MONITOR THROUGHOUT THE SHIFT. Addendum: 10/24/21 at 1143 by SELVIN HAIDER RN CORRECTION: PT ON MED/SURG NOT ON TELE-MONITOR ANYMORE
[2021-10-24 07:53] LABS: ALANINE AMINOTRANSFERASE 46 U/L (12-78); ALBUMIN 2.3 g/dL (3.4-5.0); ALKALINE PHOSPHATASE 267 U/L (46-116); ASPARTATE AMINOTRANSFERASE 148 U/L (15-37); BILIRUBIN,TOTAL 4.1 mg/dL (0.2-1.0); CALCIUM, SERUM 7.2 mg/dL (8.5-10.1); CARBON DIOXIDE 23 mmol/L (21-32); CHLORIDE 98 mmol/L (98-107); CREATININE 1.4 mg/dL (0.6-1.3); GLUCOSE 87 mg/dL (74-106); POTASSIUM 4.2 mmol/L (3.5-5.1); SODIUM SERUM 127 mmol/L (136-145); TOTAL PROTEIN, SERUM 4.9 g/dL (6.4-8.2); UREA NITROGEN, BLOOD 36 mg/dL (7-18)
[2021-10-24] MEDS: FLUDROCORTISONE 0.1 MG TABLET PO SCH ×2 (08:27→08:57)
[2021-10-24] MEDS: PANTOPRAZOLE 40 MG TABLET.DR PO SCH (08:28)
[2021-10-24 08:35] VITALS: BP 96/61
[2021-10-24] MEDS: FOLIC ACID 1 MG TABLET PO SCH (08:57)
[2021-10-24] MEDS: ASPIRIN EC 81 MG TABLET.DR PO SCH (08:58)
[2021-10-24] MEDS: CHOLECALCIFEROL 1,000 UNIT TABLET (VIT D3) PO SCH (08:58)
[2021-10-24] MEDS: predniSONE 5 MG TABLET PO SCH (08:58)
[2021-10-24] MEDS: CLOPIDOGREL BISULFATE 75 MG TABLET PO SCH (08:59)
[2021-10-24] MEDS: SOTALOL HCL 80 MG TABLET PO SCH ×2 (09:00→21:00)
[2021-10-24] MEDS: MIDODRINE HCL (5MG) 5 MG TABLET PO SCH ×3 (09:00→16:16)
[2021-10-24] MEDS: HEPARIN SODIUM, PORCINE 5000 UNITS/1 ML VIAL SQ SCH ×2 (09:01→22:23)
[2021-10-24] MEDS ORDERED: VANCOMYCIN HCL 1.25 GM in IV D5W 260 ML IV SCH (09:30)
--- NOTE | 2021-10-24 11:26 | NUR ---
RN NOTES URINE SPECIMEN COLLECTED FOR URINALYSIS, CALLED LAB TO PICK-UP SPECIMEN.
[2021-10-24] MEDS: IV NS 0.9% 1,000 ML IV SCH ×2 (12:46→22:22)
[2021-10-24] MEDS: CEFEPIME 2 GM in IV D5W 100 ML IV SCH ×2 (13:15→22:19)
[2021-10-24 14:40] LABS: BILIRUBIN,URINE MODERATE (NEGATIVE); COLOR,URINE YELLOW (YELLOW); LEUKOCYTE ESTERASE ,URINE NEGATIVE (NEGATIVE); NITRITE, URINE NEGATIVE (NEGATIVE); PH,URINE 5.5 (5.0-8.0); PROTEIN,URINE TRACE mg/dl (NEGATIVE); UGLUCOSE NEGATIVE (NEGATIVE)
[2021-10-24 15:02] LABS: BACTERIA,URINE Few /HPF (None Seen); RBC,URINE 0-2 /HPF (0-2); WBC,URINE 0-2 /HPF (0-3)
[2021-10-24 15:03] LABS: HYALINE CASTS, URINE 0-2 /LPF (None Seen); SQUAMOUS EPITHELIAL CELL,UR Few /HPF (None Seen)
[2021-10-24 16:04] VITALS: BP 95/54
[2021-10-24] MEDS: SENNOSIDES 8.6 MG TABLET PO SCH (16:15)
--- NOTE | 2021-10-24 18:38 | NUR ---
MS RN CLOSING NOTES PT LAYING AWAKE IN BED. A/O X 4, FINNISH SPEAKER. PT WITH REGULAR AND UNLABORED BREATHING ON ROOM AIR TOLERATING WELL. NO SIGNS AND SYMPTOMS OF DISTRESS NOTED AT THIS TIME. NO COMPLAINTS OF PAIN OR DISCOMFORT AT THIS TIME. IV ACCESS L AC #20g SL. IV ACCESS PATENT AND INTACT. SAFETY PRECAUTIONS ENFORCED WITH BED LOCKED AND IN LOWEST POSITION. SIDE RAILS UP X2. CALL LIGHT AND BED SIDE TABLE ARE WITHIN REACH AT ALL TIMES. WILL ENDORSE TO ONCOMING SHIFT.
--- NOTE | 2021-10-24 19:40 | NUR ---
MS/RN OPENING NOTE RECEIVED PATIENT RESTING IN BED. AWAKE, ALERT AND ORIENTED X 4. ABLE TO MAKE NEEDS KNOWN. DENIES PAIN AT THIS TIME. CONTINUES ON ROOM AIR WITH NO S/SX OF RESPIRATORY DISTRESS NOTED. IV ACCESS TO LEFT AC #20G INTACT AND PATENT. CONTINUES ON IVF NS @ 100ML/HR. CONTINUES ON IV ABX. CALL LIGHT WITHIN REACH. ASPIRATION, FALL AND SAFETY PRECAUTIONS MAINTAINED. WILL CONTINUE TO MONITOR.
[2021-10-24 20:00] VITALS: BP 99/55
--- NOTE | 2021-10-24 21:00 | NUR ---
MS/RN NOTE FAMILY MEMBER, CYNTHIA PISANO, LEFT PHONE NUMBER TO CALL FOR DISCHARGE TRANSPORT. PHONE NUMBER [phone].
--- NOTE | 2021-10-25 06:40 | NUR ---
MS/RN CLOSING NOTE PATIENT CURRENTLY RESTING IN BED. AWAKE, ALERT AND ORIENTED X 4. ABLE TO MAKE NEEDS KNOWN. DENIES PAIN AT THIS TIME. CONTINUES ON ROOM AIR WITH NO S/SX OF RESPIRATORY DISTRESS NOTED. IV ACCESS TO LEFT AC #20G INTACT AND PATENT. CONTINUES ON IVF NS @ 100ML/HR. CONTINUES ON IV ABX. CALL LIGHT WITHIN REACH. ASPIRATION, FALL AND SAFETY PRECAUTIONS MAINTAINED. WILL ENDORSE PLAN OF CARE TO ONCOMING SHIFT.
[2021-10-25 06:57] LABS: BASOPHILS % (AUTO) 0.2 % (0.0-2.0); EOSINOPHILS % (AUTO) 1.3 % (0.0-6.0); HEMATOCRIT 39 % (39-51); HEMOGLOBIN 12.9 g/dL (13.5-17.5); LYMPHOCYTES # (AUTO) 1.4 K/uL (0.8-4.8); LYMPHOCYTES % (AUTO) 8.7 % (20.0-44.0); MEAN CORPUSCULAR HGB CONC 33 g/dl (31.0-36.0); MEAN CORPUSCULAR VOLUME 100 fL (80-96); MONOCYTES # (AUTO) 1.4 K/uL (0.1-1.30); MONOCYTES % (AUTO) 8.7 % (2.0-12.0); NEUTROPHILS # (AUTO) 12.7 K/uL (1.8-8.9); NEUTROPHILS % (AUTO) 81.1 % (43.0-81.0); PLATELET COUNT (AUTO) 81 K/uL (150-450); RED BLOOD CELL COUNT(AUTO) 3.87 MIL/uL (4.5-6.0); WHITE BLOOD COUNT (AUTO) 15.7 K/uL (4.3-11.0)
[2021-10-25 07:12] LABS: ALBUMIN 2.3 g/dL (3.4-5.0); BILIRUBIN,TOTAL 4.7 mg/dL (0.2-1.0); CALCIUM, SERUM 7.4 mg/dL (8.5-10.1); CREATININE 1.3 mg/dL (0.6-1.3); TOTAL PROTEIN, SERUM 5.1 g/dL (6.4-8.2)
--- NOTE | 2021-10-25 07:53 | NUR ---
RN OPENING NOTES PATIENT AWAKE IN BED RESTING, A/O X4. NO S/S OF PAIN NOTED AT THIS TIME. ON ROOM AIR, NO DISTRESS OR SHORTNESS OF BREATH NOTED. IV ACCESS L AC #20G, INTACT, PATENT AND FLUSHING WELL. FALL AND SAFETY MEASURES IN PLACE, BED ALARM ON, BED IN LOW AND LOCK POSITION, CALL LIGHT AND TABLE WITHIN EASY REACH, SIDE RAILS UP X2. WILL CONTINUE TO MONITOR.
[2021-10-25 08:30] VITALS: BP 123/61
[2021-10-25] MEDS: FLUDROCORTISONE 0.1 MG TABLET PO SCH (09:15)
[2021-10-25] MEDS: PANTOPRAZOLE 40 MG TABLET.DR PO SCH (09:15)
[2021-10-25] MEDS: METHOTREXATE SODIUM (2.5MG) 2.5 MG TABLET PO SCH (09:15)
[2021-10-25] MEDS: CEFEPIME 2 GM in IV D5W 100 ML IV SCH ×2 (09:15→21:09)
[2021-10-25] MEDS: predniSONE 5 MG TABLET PO SCH (09:16)
[2021-10-25] MEDS: FOLIC ACID 1 MG TABLET PO SCH (09:16)
[2021-10-25] MEDS: CLOPIDOGREL BISULFATE 75 MG TABLET PO SCH (09:16)
[2021-10-25] MEDS: ASPIRIN EC 81 MG TABLET.DR PO SCH (09:17)
[2021-10-25] MEDS: MIDODRINE HCL (5MG) 5 MG TABLET PO SCH ×3 (09:17→17:48)
[2021-10-25] MEDS: SOTALOL HCL 80 MG TABLET PO SCH ×2 (09:17→21:00)
[2021-10-25] MEDS: CHOLECALCIFEROL 1,000 UNIT TABLET (VIT D3) PO SCH (09:17)
[2021-10-25] MEDS: IV NS 0.9% 1,000 ML IV SCH ×2 (09:18→18:31)
[2021-10-25] MEDS: VANCOMYCIN 1 GM in IV D5W 250 ML IV SCH (11:32)
[2021-10-25 16:03] VITALS: BP 106/61
[2021-10-25] MEDS: SENNOSIDES 8.6 MG TABLET PO SCH (17:47)
--- NOTE | 2021-10-25 18:40 | NUR ---
RN CLOSING NOTES PATIENT AWAKE IN BED RESTING, A/O X4. NO S/S OF PAIN NOTED AT THIS TIME. ON ROOM AIR, NO DISTRESS OR SHORTNESS OF BREATH NOTED. IV ACCESS L AC #20G, INTACT, PATENT AND FLUSHING WELL. FALL AND SAFETY MEASURES IN PLACE, BED ALARM ON, BED IN LOW AND LOCK POSITION, CALL LIGHT AND TABLE WITHIN EASY REACH, SIDE RAILS UP X2. WILL ENDORSE TO LAN ENGINEER.
--- NOTE | 2021-10-25 19:50 | NUR ---
MS OPENING NOTE PATIENT RECEIVED AWAKE IN BED. A/OX4. NO S/S OF DISTRESS, BREATHING SYMMETRICAL. SAFETY MEASURES IN PLACE: BED AT LOWEST POSITION, RAILS UP X2, CALL [place] WITHIN REACH. WILL CONTINUE TO MONITOR.
[2021-10-25 20:00] VITALS: BP 99/60
--- NOTE | 2021-10-25 20:28 | NUR ---
RN NOTE PATIENT'S LAC IV ACCESS BECAME DISLODGED. IV ACCESS WAS REMOVED, NO ACTIVE BLEEDING OCCURRED. PRESSURE DRESSING APPLIED. IV CATH INTACT. RAC #20 INSERTED SUCCESSFULLY. NS 100ML/HR RUNNING WITHOUT OBSTRUCTION. PATIENT EXPRESSED NO PAIN FOR EITHER SITE. PATIENT STABLE.
[2021-10-26] MEDS: IV NS 0.9% 1,000 ML IV SCH ×2 (04:53→14:32)
--- NOTE | 2021-10-26 06:30 | NUR ---
MS RN CLOSING NOTE PATIENT AWAKE IN BED. A/OX4. NO S/S OF DISTRESS, BREATHING SYMMETRICAL. RAC #20 W/ NS 100ML/HR INTACT AND PATENT. SAFETY MEASURES IN PLACE: BED AT LOWEST POSITION, RAILS UP X2, CALL [place] WITHIN REACH. WILL ENDORSE TO FOLLOWING SHIFT FOR JAQUELINE.
[2021-10-26 07:15] LABS: BASOPHILS % (AUTO) 0.2 % (0.0-2.0); EOSINOPHILS % (AUTO) 0.7 % (0.0-6.0); HEMATOCRIT 37 % (39-51); HEMOGLOBIN 12.5 g/dL (13.5-17.5); LYMPHOCYTES % (AUTO) 7.7 % (20.0-44.0); MEAN CORPUSCULAR HGB CONC 34 g/dl (31.0-36.0); MEAN CORPUSCULAR VOLUME 100 fL (80-96); MONOCYTES # (AUTO) 1.1 K/uL (0.1-1.30); MONOCYTES % (AUTO) 8.3 % (2.0-12.0); NEUTROPHILS # (AUTO) 11.3 K/uL (1.8-8.9); NEUTROPHILS % (AUTO) 83.1 % (43.0-81.0); PLATELET COUNT (AUTO) 84 K/uL (150-450); RED BLOOD CELL COUNT(AUTO) 3.72 MIL/uL (4.5-6.0); WHITE BLOOD COUNT (AUTO) 13.6 K/uL (4.3-11.0)
--- NOTE | 2021-10-26 07:57 | NUR ---
RN OPENING NOTE Patient in bed, awake. A/O x 4, able to make needs known. On room air, breathing evenly and unlabored. No SOB or s/s of distress noted. IV access on RAC #20G infusing NS at 100 ml/hr. Denies any pain or discomfort at this time. Safety precautions in place: bed in low, locked position; siderails up x 2; call light within reach. Will continue to monitor.
[2021-10-26] MEDS: PANTOPRAZOLE 40 MG TABLET.DR PO SCH (08:12)
[2021-10-26] MEDS: ASPIRIN EC 81 MG TABLET.DR PO SCH (08:13)
[2021-10-26] MEDS: FOLIC ACID 1 MG TABLET PO SCH (08:13)
[2021-10-26] MEDS: FLUDROCORTISONE 0.1 MG TABLET PO SCH (08:13)
[2021-10-26] MEDS: CLOPIDOGREL BISULFATE 75 MG TABLET PO SCH (08:13)
[2021-10-26] MEDS: predniSONE 5 MG TABLET PO SCH (08:17)
[2021-10-26] MEDS: MIDODRINE HCL (5MG) 5 MG TABLET PO SCH ×3 (08:17→17:03)
[2021-10-26] MEDS: CHOLECALCIFEROL 1,000 UNIT TABLET (VIT D3) PO SCH (08:18)
[2021-10-26] MEDS: SOTALOL HCL 80 MG TABLET PO SCH ×2 (08:18→20:34)
[2021-10-26 08:21] LABS: ALANINE AMINOTRANSFERASE 55 U/L (12-78); ALBUMIN 2.1 g/dL (3.4-5.0); ALKALINE PHOSPHATASE 275 U/L (46-116); ASPARTATE AMINOTRANSFERASE 144 U/L (15-37); CALCIUM, SERUM 7.4 mg/dL (8.5-10.1); CARBON DIOXIDE 20 mmol/L (21-32); CHLORIDE 101 mmol/L (98-107); CREATININE 1.5 mg/dL (0.6-1.3); GLUCOSE 88 mg/dL (74-106); POTASSIUM 4.3 mmol/L (3.5-5.1); SODIUM SERUM 129 mmol/L (136-145); TOTAL PROTEIN, SERUM 4.9 g/dL (6.4-8.2); UREA NITROGEN, BLOOD 35 mg/dL (7-18)
[2021-10-26] MEDS: CEFEPIME 2 GM in IV D5W 100 ML IV SCH ×2 (08:28→20:34)
[2021-10-26 08:34] VITALS: BP 92/55
[2021-10-26] MEDS: VANCOMYCIN 1 GM in IV D5W 250 ML IV SCH (11:06)
[2021-10-26 15:59] VITALS: BP 93/61
[2021-10-26] MEDS: SENNOSIDES 8.6 MG TABLET PO SCH (17:02)
--- NOTE | 2021-10-26 18:59 | NUR ---
RN CLOSING NOTE Patient in bed, resting comfortably. A/O x 4, able to make needs known. Stable on room air, breathing evenly and unlabored. No SOB or s/s of distress noted. IV access on RAC #20G infusing NS at 100 ml/hr. Denies any pain or discomfort at this time. All needs attended to. Due meds given. Safety precautions maintained: bed in low, locked position; siderails up x 2; call light within reach. Will endorse to night time nanny nurse for JAQUELINE.
--- NOTE | 2021-10-26 19:34 | NUR ---
RN OPENING NOTES RECEIVED PT IN BED, ASLEEP, AWAKENS TO VERBAL STIMULI. AOx4, ABLE TO MAKE NEEDS KNOWN. ON RA AND TOLERATING WELL. NO SOB NOTED. NO S/SX OF RESPIRATORY DISTRESS NOTED. IV ACCESS IN RAC #20G RUNNING NS @ 100 ML/HR. SAFETY PRECAUTIONS IN PLACE: BED IN LOWEST, LOCKED POSITION, SIDERAILS UPx2, AND BRAKES ON. TABLE AND CALL LIGHT WITHIN REACH. WILL CONTINUE TO MONITOR.
[2021-10-27] MEDS: IV NS 0.9% 1,000 ML IV SCH ×2 (00:36→11:55)
[2021-10-27 03:26] VITALS: BP 120/59
[2021-10-27 07:17] LABS: BASOPHILS % (AUTO) 0.2 % (0.0-2.0); EOSINOPHILS % (AUTO) 0.6 % (0.0-6.0); HEMATOCRIT 38 % (39-51); HEMOGLOBIN 12.5 g/dL (13.5-17.5); LYMPHOCYTES % (AUTO) 6.9 % (20.0-44.0); MEAN CORPUSCULAR HGB CONC 33 g/dl (31.0-36.0); MEAN CORPUSCULAR VOLUME 101 fL (80-96); MONOCYTES # (AUTO) 0.5 K/uL (0.1-1.30); MONOCYTES % (AUTO) 3.6 % (2.0-12.0); NEUTROPHILS # (AUTO) 12.7 K/uL (1.8-8.9); NEUTROPHILS % (AUTO) 88.7 % (43.0-81.0); PLATELET COUNT (AUTO) 79 K/uL (150-450); RED BLOOD CELL COUNT(AUTO) 3.72 MIL/uL (4.5-6.0); WHITE BLOOD COUNT (AUTO) 14.3 K/uL (4.3-11.0)
--- NOTE | 2021-10-27 07:21 | NUR ---
RN CLOSING NOTES PT IN BED, ASLEEP, AWAKENS TO VERBAL STIMULI. AOx4, ABLE TO MAKE NEEDS KNOWN. ON RA AND TOLERATING WELL. NO SOB NOTED. NO S/SX OF RESPIRATORY DISTRESS NOTED. IV ACCESS IN RAC #20G RUNNING NS @ 100 ML/HR. ALL NEEDS MET. PT KEPT CLEAN AND DRY. SAFETY PRECAUTIONS IN PLACE: BED IN LOWEST, LOCKED POSITION, SIDERAILS UPx2, AND BRAKES ON. TABLE AND CALL LIGHT WITHIN REACH. WILL ENDORSE TO ONCOMING SHIFT.
--- NOTE | 2021-10-27 07:30 | NUR ---
MS RN OPENING NOTES RECEIVED PT IN BED, ASLEEP, AWAKENS TO VERBAL STIMULI. AOx4, ABLE TO MAKE NEEDS KNOWN. ON RA AND TOLERATING WELL. NO SOB NOTED. NO S/SX OF RESPIRATORY DISTRESS NOTED. WITH NO COMPLAINTS OF PAIN OR DISCOMFORT AT THIS TIME. IV ACCESS IN RAC #20G RUNNING NS @ 100 ML/HR. SAFETY PRECAUTIONS IN PLACE: BED IN LOWEST, LOCKED POSITION, SIDERAILS UPx2, AND BRAKES ON. TABLE AND CALL LIGHT WITHIN REACH. WILL CONTINUE TO MONITOR.
[2021-10-27 08:05] LABS: CREATININE 1.3 mg/dL (0.6-1.3); MAGNESIUM 2.6 mg/dL (1.8-2.4); PHOSPHORUS 2.7 mg/dL (2.5-4.9); POTASSIUM 4.1 mmol/L (3.5-5.1)
[2021-10-27 08:44] VITALS: BP 94/63
[2021-10-27] MEDS: CEFEPIME 2 GM in IV D5W 100 ML IV SCH (08:56)
[2021-10-27] MEDS: MIDODRINE HCL (5MG) 5 MG TABLET PO SCH ×3 (08:56→16:34)
[2021-10-27] MEDS: CHOLECALCIFEROL 1,000 UNIT TABLET (VIT D3) PO SCH (08:57)
[2021-10-27] MEDS: predniSONE 5 MG TABLET PO SCH (08:57)
[2021-10-27] MEDS: FLUDROCORTISONE 0.1 MG TABLET PO SCH (08:57)
[2021-10-27] MEDS: SOTALOL HCL 80 MG TABLET PO SCH (08:57)
[2021-10-27] MEDS: CLOPIDOGREL BISULFATE 75 MG TABLET PO SCH (08:57)
[2021-10-27] MEDS: PANTOPRAZOLE 40 MG TABLET.DR PO SCH (08:58)
[2021-10-27] MEDS: FOLIC ACID 1 MG TABLET PO SCH (08:58)
[2021-10-27] MEDS: ASPIRIN EC 81 MG TABLET.DR PO SCH (08:58)
[2021-10-27] MEDS: VANCOMYCIN 1 GM in IV D5W 250 ML IV SCH (11:51)
[2021-10-27] MEDS ORDERED: Aspirin Ec PO (14:06)
[2021-10-27] MEDS ORDERED: METH2.5T14 PO (14:06)
[2021-10-27] MEDS ORDERED: SOTA80TA6 PO (14:06)
[2021-10-27] MEDS ORDERED: Folic Acid PO (14:06)
[2021-10-27] MEDS ORDERED: FLUD0.1T3 PO (14:06)
[2021-10-27] MEDS ORDERED: MIDO5TAB4 PO (14:06)
[2021-10-27] MEDS ORDERED: PRED5TAB PO (14:06)
[2021-10-27 16:08] VITALS: BP 176/75
[2021-10-27 16:34] VITALS: BP 96/62
[2021-10-27] MEDS: SENNOSIDES 8.6 MG TABLET PO SCH (16:34)
--- NOTE | 2021-10-27 19:00 | NUR ---
MS MORTGAGE LOAN OFFICER NOTES PATIENT WAS SEEN BY DR. SCHRADER AND ORDERED PATIENT FOR DISCHARGE TO HOME. DISCHARGE INSTRUCTIONS AND EDUCATION PROVIDED TO PATIENT AND EXPLAINED MEDICATIONS AND PRESCRIPTIONS. PATIENT VERBALIZED UNDERSTANDING. DISCHARGE FORM AND BELONGINGS LIST FORM SIGNED. NAME WRIST BAND AND IV LINE REMOVED. ACCOMPANIED PATIENT TO THE LOBBY VIA WHEELCHAIR WITH THE FAMILY AND LEFT IN STABLE CONDITION VIA PRIVATE CAR. MD AND CHARGE NURSE ARE AWARE OF THE DISCHARGE.
== END 2021-10-27 19:00 | disposition home or self-care (01) | DRG 280 ==
LOC: ER 19:15 → TRANSITION 10-18 00:06 → TELE 10-18 19:40 → MED 10-23 17:13
PROVIDERS: ADMIT Student in an Organized Health Care Education/Training Program; ATTEND Registered Nurse
DX: T82.847A Pain due to cardiac prosthetic devices, implants and grafts, initial encounter (principal); J15.9 Unspecified bacterial pneumonia; I21.A1 Myocardial infarction type 2; N17.0 Acute kidney failure with tubular necrosis; E87.1 Hypo-osmolality and hyponatremia; I13.0 Hypertensive heart and chronic kidney disease with heart failure and stage 1 through stage 4 chronic kidney disease, or unspecified chronic kidney disease; R18.8 Other ascites; R65.10 Systemic inflammatory response syndrome (SIRS) of non-infectious origin without acute organ dysfunction; I50.9 Heart failure, unspecified; E11.22 Type 2 diabetes mellitus with diabetic chronic kidney disease; N18.9 Chronic kidney disease, unspecified; Y84.8 Other medical procedures as the cause of abnormal reaction of the patient, or of later complication, without mention of misadventure at the time of the procedure; E86.1 Hypovolemia; I25.10 Atherosclerotic heart disease of native coronary artery without angina pectoris; Z20.822 Contact with and (suspected) exposure to COVID-19; R53.1 Weakness; R74.01 Elevation of levels of liver transaminase levels; Z95.810 Presence of automatic (implantable) cardiac defibrillator; I08.0 Rheumatic disorders of both mitral and aortic valves; R16.1 Splenomegaly, not elsewhere classified; T38.0X5A Adverse effect of glucocorticoids and synthetic analogues, initial encounter; Y92.009 Unspecified place in unspecified non-institutional (private) residence as the place of occurrence of the external cause; D72.828 Other elevated white blood cell count
CPT/HCPCS: 36415; 71045-TC; 76700-TC; 76770-TC; 80048-TC; 80053-TC; 80061-TC; 80076-TC; 80202-TC; 81001; 82533; 83735-TC; 84100-TC; 84300-TC; 84443-TC; 84484-TC; 85025-TC; 87040-TC; 87081-TC; 93307-TC; 97110-TC; 97116-TC; 97530-TC; A4216; C9803; G0378; J0692; J0696; J1644; J2270; J2405; J3370; J7030; J7040; J7050; J7060; J7512; J8610; P9047